=== PATIENT | male | born 2000 ===

== ENCOUNTER 2018-03-16 13:34 | Emergency (ER) | payer MEDICAID ==
[2018-03-16 13:57] VITALS: RESP 16; O2SAT 99
--- NOTE | 2018-03-16 14:45 | ED PDOC ---
HPI: General Adult Time Seen by Provider: 03/16/18 14:16 Chief Complaint (Nursing): Abdominal Pain Chief Complaint (Provider): Left groin pain History Per: Patient History/Exam Limitations: no limitations Onset/Duration Of Symptoms: Days (7) Have you had recent travel within the past 21 days to any of the following countries: [place], [place], [place] or [place]?: No Additional History Per: Patient Additional Complaint(s): 17yo male, otherwise well, comes to ER reporting left groin pain x 7 days. He describes a burning sensation, which is worse with movement. He denies any radiation of pain, trauma or injury to the site, testicular pain and swelling, dysuria or hematuria. Patient denies being sexually active and denies any abnormal penile discharge. He additionally reports right upper quadrant abdominal pain, present for a month and states it is worse at night after eating food. He denies any vomiting, diarrhea, fever or chills. Patient does note that a family member was recently diagnosed with H.pylori. Otherwise, no additional medical complaints. PMD: Past Medical History Reviewed: Historical Data, Nursing Documentation, Vital Signs Vital Signs: Last Vital Signs Temp 97.8 F 03/16/18 13:55 Pulse 69 03/16/18 13:55 Resp 16 03/16/18 13:55 BP 112/67 03/16/18 13:55 Pulse Ox 99 03/16/18 13:55 - Medical History PMH: No Chronic Diseases - Surgical History Surgical History: No Surg Hx - Family History Family History: States: No Known Family Hx - Living Arrangements Living Arrangements: With Family - Social History Current smoker - smoking cessation education provided: No Alcohol: None Drugs: Denies - Home Medications Home Medications: Ambulatory Orders Medication Instructions Recorded Famotidine [Pepcid] 20 mg PO DAILY #14 tab 03/16/18 RX: Omeprazole 20 mg PO DAILY #30 capsule. 03/16/18 - Allergies Allergies/Adverse Reactions: Allergies Allergy/AdvReac Type Severity Reaction Status Date / Time No Known Allergies Allergy Verified 03/16/18 14:17 Review of Systems ROS Statement: Except As Marked, All Systems Reviewed And Found Negative Constitutional: Negative for: Fever, Chills Cardiovascular: Negative for: Chest Pain Gastrointestinal: Positive for: Abdominal Pain (right upper quadrant). Negative for: Nausea, Vomiting Genitourinary Male: Positive for: Other (left groin pain). Negative for: Dys uria, Frequency, Hematuria, Penile Discharge, Scrotal Pain, Penile Pain Physical Exam - Reviewed Nursing Documentation Reviewed: Yes Vital Signs Reviewed: Yes - Physical Exam Appears: Positive for: Non-toxic, No Acute Distress Head Exam: Positive for: ATRAUMATIC, NORMAL INSPECTION, NORMOCEPHALIC Skin: Positive for: Normal Color Eye Exam: Positive for: Normal appearance Neck: Positive for: Supple Cardiovascular/Chest: Positive for: Regular Rate, Rhythm Respiratory: Positive for: Normal Breath Sounds Gastrointestinal/Abdominal: Positive for: Soft, Tenderness (mild right upper quadrant tenderness). Negative for: Mass, Guarding, Rebound Male Genital Exam: Positive for: no hernia, other (no tenderness to left groin region; no erythema, rash or other skin changes noted.). Negative for: inguinal tenderness Extremity: Positive for: Normal ROM Neurologic/Psych: Positive for: Alert, Oriented. Negative for: Motor/Sensory Deficits - Laboratory Results Result Diagrams: 03/16/18 14:43 03/16/18 14:43 - ECG O2 Sat by Pulse Oximetry: 99 (RA) Pulse Ox Interpretation: Normal Medical Decision Making Medical Decision Making: Impression: Left groin pain; rule out UTI, less likely small inguinal hernia, lymphadenopathy, hydrocele or varicocele due to normal exam Right upper quadrant pain; rule out gastritis, biliary disease Plan: -- Labs -- Urine dip 1510 Labs reviewed, with no clinically significant abnormalities. UDip negative. Patient informed of lab findings and is stable for discharge home. Instructed to follow up with PMD in 2-3 days. Patient informed to return to ER fi symptoms worsen or new symptoms arise. Scribe Attestation: Documented by Cristiana Joshi acting as a scribe for Maximo Mckeon MD. Provider Attestation: All medical record entries made by the Beau[facility] were at my direction and personally dictated by me. I have reviewed the chart and agree that the record accurately reflects my personal performance of the history, physical exam, medical decision making, and the department course for this patient. I have also personally directed, reviewed, and agree with the discharge instructions and disposition. Disposition - Clinical Impression Clinical Impression: Left groin pain, Abdominal pain - Patient ED Disposition Is Patient to be Admitted: No Doctor Will See Patient In The: Office Counseled Patient/Family Regarding: Studies Performed, Diagnosis, Need For Followup - Disposition Referrals: [facility] [Outside] Disposition: Routine/Home Disposition Time: 15:10 Condition: GOOD Additional Instructions: ISAIAS HANKS, thank you for letting us take care of you today. Your provider was Maximo Mckeon MD and you were treated for LOWER ABD PAIN. The emergency medical care you received today was directed at your acute symptoms. If you were prescribed any medication, please fill it and take as directed. It may take several days for your symptoms to resolve. Return to the Emergency Department if your symptoms worsen, do not improve, or if you have any other problems. Please contact your doctor or call one of the physicians/clinics you have been referred to that are listed on the Patient Visit Information form that is included in your discharge packet. Bring any paperwork you were given at discharge with you along with any medications you are taking to your follow up visit. Our treatment cannot replace ongoing medical care by a primary care provider outside of the emergency department. Thank you for allowing the [facility] team to be part of your care today. If you had an X-Ray or CT scan: A Radiologist will review the ED reading if any change in treatment is needed we will contact you. If you had a blood, urine, or wound culture: It will take several days for the results, if any change in treatment is needed we will contact you. If you had an STI test: It will take 48 hours for the results. Please call after 1 week if you have not heard back. Prescriptions: Famotidine [Pepcid] 20 mg PO DAILY #14 tab RX: Omeprazole 20 mg PO DAILY #30 capsule.dr Instructions: Stomach Ache and Stomach Upset
[2018-03-16 14:54] LABS: BASO % 0.6 % (0.0-2.0); EOS # 0.1 K/uL (0.0-0.7); HEMOGLOBIN 15.4 g/dL (12.0-18.0); LYMPH # 1.9 K/uL (1.0-4.3); LYMPH % 30.4 % (20.0-40.0); MEAN CELL VOLUME 87.8 fl (80.0-94.0); MEAN CORPUSCULAR HEMOGLOBIN 29.2 pg (27.0-31.0); MEAN CORPUSCULAR HGB CONC 33.2 g/dL (33.0-37.0); MEAN PLATELET VOLUME 7.3 fl (7.2-11.7); MONO # 0.3 K/uL (0.0-0.8); NEUT # 3.8 K/uL (1.8-7.0); NRBC % 0.1 % (0.0-0.0); RBC 5.26 Mil/uL (4.40-5.90); RED CELL DISTRIBUTION WIDTH 13.3 % (11.5-14.5); WHITE BLOOD COUNT 6.1 K/uL (4.8-10.8)
[2018-03-16 15:03] LABS: ALB/GLOB RATIO 1.4 (1.0-2.1); ALBUMIN 5.1 g/dL (3.5-5.0); ALT/SGPT 19 U/L (21-72); AST/SGOT 22 U/L (17-59); BLOOD UREA NITROGEN 12 mg/dl (9-20); GFR NON-AFRICAN AMERICAN > 60; LIPASE 89 U/L (23-300)
[2018-03-16 16:11] VITALS: BP 110/70; PULSE 70; TEMP 98
== END 2018-03-16 16:12 | disposition home or self-care (01) ==
LOC: H.ER 13:34
DX: R10.32 Left lower quadrant pain (principal)